=== PATIENT | male | born 1945 | race Caucasian/White ===

== ENCOUNTER 2023-06-26 19:49 | Inpatient (IN) | payer MEDICARE ==
[2023-06-26] MEDS ORDERED: Cefepime 2 GM VIAL ONE (20:37)
[2023-06-26] MEDS ORDERED: Sodium Chloride 0.9% 100 ML ONE (20:38)
[2023-06-26 20:52] LABS: Hematocrit 33.4 % (42.0-52.0); Hemoglobin 9.6 g/dL (14.0-18.0); Mean Corpuscular HGB CONC 28.7 g/dL (32.0-36.0); Mean Corpuscular Hemoglobin 30.2 pg (27.0-31.0); Mean Platelet Volume 8.9 fL (7.4-10.4); Platelet Count 208 10x3/uL (130-400); RBC Distribution Width 14.4 % (11.5-14.5); Red Blood Cell (RBC) Count 3.18 mill/uL (4.70-6.10); White Blood Cell (WBC) Count 11.1 10x3/uL (4.8-10.8)
[2023-06-26 20:57] LABS: Delete Auto Diff?? YES; Manual Diff?? YES
[2023-06-26] MEDS ORDERED: Vancomycin (BATCH) 1.5 GM in Premix 1 BAG IVPB SCH (21:00)
[2023-06-26 21:18] LABS: ALT (SGPT) 8 U/L (8-55); AST (SGOT) 15 U/L (5-34); Albumin 3.4 g/dL (3.4-4.8); Alkaline Phosphatase 89 U/L (40-110); Anion Gap 14 mmol/L (10-20); BUN (Urea Nitrogen) 28 mg/dL (8.4-25.7); Bilirubin, Total 0.7 mg/dL (0.2-1.2); Calc. Creatinine Clearance 0 mL/min (70-130); Carbon Dioxide 26 mmol/L (23-31); Chloride 100 mmol/L (98-107); Estimated GFR 61; Globulin 3.1 g/dL (2.4-3.5); Glucose 114 mg/dL (83-110); Potassium 4.4 mmol/L (3.5-5.1); Protein, Total 6.5 g/dL (5.8-8.1); Sodium 136 mmol/L (136-145)
[2023-06-26 21:39] LABS: Anisocytosis SLIGHT = 6-15 cells HPF (0-5); Band 5 % (5-11); CellaVision Operator ID LAB.JMM; Eosinophils 1 % (0-10); Lymphocytes 2 % (21-51); Macrocytosis SLIGHT = 6-15 cells HPF (0-5); Metamyelocyte 1 % (0-0); Monocytes 3 % (0-10); Neutrophil 86 % (42-75); Platelet Adequacy Comment Platelets Normal; Reactive Lymphocytes 1 % (0-10); Total Cell Count 100
[2023-06-26 21:40] LABS: Actual Bicarbonate (HCO3v) 28.5 mEq/L (22-28); Base Excess 2.1 mEq/L (-2.0 to +3.0); Calcium, Ionized (venous) 1.15 mmol/L (1.16-1.32); Chloride (VBG) 99 mmol/L (98-106); Hematocrit-VBG 32 % (42.0-52.0); Hemoglobin (Hb) 10.8 g/dL (12.6-17.4); Potassium (VBG) 4.39 mmol/L (3.70-5.30); Sodium 135 mmol/L (133-146); pH (venous) 7.345 (7.32-7.43)
[2023-06-26 21:51] LABS: Bacteria/HPF 3+ HPF (None Seen); Bilirubin Negative (Negative); Blood, Urine 3+ (Negative); CAUTI Indications for Culture Dysuria,urgency,freq; Clarity Extra Turbid (Clear); Glucose, Urine (Dipstick) Normal (Negative); Ketone, Urine Negative (Negative); Leukocyte 500 Leu/uL (Negative); Nitrite Negative (Negative); Protein, Urine (Dipstick) 200 mg/dL (Neg-Trace); Specific Gravity, Urine 1.012 (1.002-1.036); Squamous Epithelial None Seen HPF (0-3); Urobilinogen Normal mg/dL (Less than 2); WBC/HPF Greater than 50 HPF (0-3); pH, Urine 6.5 (5.0-9.0)
[2023-06-26 22:00] LABS: Urine Culture Reflex Yes Yes
[2023-06-26] MEDS ORDERED: Sodium Chloride 0.9% 1,000 ML IV SCH (23:45)
[2023-06-26] MEDS ORDERED: Ondansetron PF 4 MG/2 ML Vial IVP PRN (23:46)
[2023-06-26] MEDS ORDERED: Acetaminophen 325 MG TAB PO PRN (23:46)
[2023-06-26] MEDS ORDERED: Ondansetron ODT 4 MG TAB PO PRN (23:46)
[2023-06-26] MEDS ORDERED: Ipratropium/Albuterol 3 ML NEB NEB PRN (23:49)
[2023-06-27 03:52] VITALS: BMI 22.1
[2023-06-27 05:03] LABS: Hematocrit 31.6 % (42.0-52.0); Hemoglobin 8.9 g/dL (14.0-18.0); Mean Corpuscular HGB CONC 28.2 g/dL (32.0-36.0); Mean Corpuscular Volume 106.4 fl (78.0-98.0); Mean Platelet Volume 9.3 fL (7.4-10.4); Platelet Count 176 10x3/uL (130-400); RBC Distribution Width 14.6 % (11.5-14.5); Red Blood Cell (RBC) Count 2.97 mill/uL (4.70-6.10); White Blood Cell (WBC) Count 9.2 10x3/uL (4.8-10.8)
[2023-06-27 05:28] LABS: Delete Auto Diff?? YES; Manual Diff?? YES
[2023-06-27 05:31] LABS: Anion Gap 13 mmol/L (10-20); BUN (Urea Nitrogen) 26 mg/dL (8.4-25.7); Calc. Creatinine Clearance 54 mL/min (70-130); Carbon Dioxide 26 mmol/L (23-31); Chloride 105 mmol/L (98-107); Estimated GFR 74; Glucose 112 mg/dL (83-110); Sodium 140 mmol/L (136-145)
[2023-06-27 06:18] LABS: Anisocytosis SLIGHT = 6-15 cells HPF (0-5); Band 9 % (5-11); CellaVision Operator ID LAB.JMM; Lymphocytes 3 % (21-51); Macrocytosis SLIGHT = 6-15 cells HPF (0-5); Metamyelocyte 1 % (0-0); Monocytes 6 % (0-10); Neutrophil 80 % (42-75); Platelet Adequacy Comment Platelets Normal; Polychromasia SLIGHT = 2-3 cells HPF (0-2); Total Cell Count 100
[2023-06-27] MEDS: cefTRIAXone\\ROCEPHIN 1 GM in Sodium Chloride 0.9% 100 ML IVPB SCH (08:45)
[2023-06-27] MEDS ORDERED: FLU VACC QS2023(65UP)/MF59C/PF 60 MCG/0.5 ML SYRINGE IM ONE (09:00)
[2023-06-27] MEDS ORDERED: methylPREDNISolone Sod Succ 40 MG VIAL IVP SCH (11:00)
[2023-06-27] MEDS: Ipratropium/Albuterol 3 ML NEB NEB SCH ×2 (13:58→18:37)
[2023-06-28 05:29] LABS: Anion Gap 16 mmol/L (10-20); BUN (Urea Nitrogen) 28 mg/dL (8.4-25.7); Calc. Creatinine Clearance 49 mL/min (70-130); Calcium 8.4 mg/dL (7.8-10.44); Carbon Dioxide 22 mmol/L (23-31); Chloride 104 mmol/L (98-107); Estimated GFR 66; Glucose 133 mg/dL (83-110); Sodium 138 mmol/L (136-145)
[2023-06-28] MEDS: Ipratropium/Albuterol 3 ML NEB NEB SCH ×4 (07:07→20:35)
[2023-06-28 07:22] LABS: Hematocrit 33.4 % (42.0-52.0); Hemoglobin 9.4 g/dL (14.0-18.0); Mean Corpuscular HGB CONC 28.1 g/dL (32.0-36.0); Mean Corpuscular Hemoglobin 30.2 pg (27.0-31.0); Mean Corpuscular Volume 107.4 fl (78.0-98.0); Mean Platelet Volume 9.4 fL (7.4-10.4); Platelet Count 176 10x3/uL (130-400); RBC Distribution Width 14.8 % (11.5-14.5); Red Blood Cell (RBC) Count 3.11 mill/uL (4.70-6.10); White Blood Cell (WBC) Count 9.8 10x3/uL (4.8-10.8)
[2023-06-28 08:08] LABS: Delete Auto Diff?? YES; Manual Diff?? YES
[2023-06-28 08:10] LABS: #Monocytes 0.4 thou/uL (0.11-0.59); #Neutrophils 8.9 thou/uL (1.40-6.50); %Basophils 0.3 % (0.0-1.0); %Eosinophils 0.2 % (0.0-10.0); %Lymphocytes 2.7 % (21.0-51.0); %Monocytes 4.1 % (0.0-10.0); %Neutrophils 87.7 % (42.0-75.0)
[2023-06-28 08:58] LABS: Band 10 % (5-11); CellaVision Operator ID LAB.GE; Hypochromia SLIGHT = 6-15 cells HPF (0-5); Lymphocytes 2 % (21-51); Macrocytosis SLIGHT = 6-15 cells HPF (0-5); Metamyelocyte 1 % (0-0); Monocytes 2 % (0-10); Myelocyte 1 % (0-0); Neutrophil 83 % (42-75); Platelet Adequacy Comment Platelets Normal; Polychromasia SLIGHT = 2-3 cells HPF (0-2); Reactive Lymphocytes 1 % (0-10); Total Cell Count 101
[2023-06-28] MEDS: cefTRIAXone\\ROCEPHIN 1 GM in Sodium Chloride 0.9% 100 ML IVPB SCH (09:44)
[2023-06-28] MEDS: methylPREDNISolone Sod Succ 40 MG VIAL IVP SCH (09:49)
[2023-06-29] MEDS: Ipratropium/Albuterol 3 ML NEB NEB SCH ×3 (00:49→14:00)
[2023-06-29 04:21] LABS: Hematocrit 31.6 % (42.0-52.0); Hemoglobin 9.2 g/dL (14.0-18.0); Mean Corpuscular HGB CONC 29.1 g/dL (32.0-36.0); Mean Corpuscular Hemoglobin 30.9 pg (27.0-31.0); Platelet Count 182 10x3/uL (130-400); RBC Distribution Width 14.7 % (11.5-14.5); Red Blood Cell (RBC) Count 2.98 mill/uL (4.70-6.10); White Blood Cell (WBC) Count 14.6 10x3/uL (4.8-10.8)
[2023-06-29 05:18] LABS: Manual Diff?? YES
[2023-06-29 05:19] LABS: Delete Auto Diff?? YES
[2023-06-29 06:24] LABS: Anisocytosis SLIGHT = 6-15 cells HPF (0-5); CellaVision Operator ID LAB.JMM; Hypochromia MODERATE=16-30 cells HPF (0-5); Lymphocytes 2 % (21-51); Monocytes 3 % (0-10); Neutrophil 95 % (42-75); Platelet Adequacy Comment Platelets Normal; Polychromasia SLIGHT = 2-3 cells HPF (0-2); Total Cell Count 99
[2023-06-29 08:54] LABS: Anion Gap 14 mmol/L (10-20); BUN (Urea Nitrogen) 33 mg/dL (8.4-25.7); Calc. Creatinine Clearance 47 mL/min (70-130); Carbon Dioxide 24 mmol/L (23-31); Chloride 104 mmol/L (98-107); Estimated GFR 63; Glucose 126 mg/dL (83-110); Potassium 3.9 mmol/L (3.5-5.1); Sodium 138 mmol/L (136-145)
[2023-06-29] MEDS: methylPREDNISolone Sod Succ 40 MG VIAL IVP SCH (10:19)
[2023-06-29] MEDS: cefTRIAXone\\ROCEPHIN 1 GM in Sodium Chloride 0.9% 100 ML IVPB SCH (10:19)
[2023-06-29 11:24] VITALS: BP 118/68; TEMP 98.1
== END 2023-06-29 15:05 | disposition home or self-care (01) | DRG 690 ==
LOC: ERS 19:49 → 2NO 23:46 → OBSVTOIN 06-27 09:41
PROVIDERS: ADMIT Physician Assistant; ATTEND Internal Medicine
DX: N39.0 Urinary tract infection, site not specified (principal); Z94.84 Stem cells transplant status; J96.10 Chronic respiratory failure, unspecified whether with hypoxia or hypercapnia; J44.1 Chronic obstructive pulmonary disease with (acute) exacerbation; C91.50 Adult T-cell lymphoma/leukemia (HTLV-1-associated) not having achieved remission; E78.5 Hyperlipidemia, unspecified; N40.0 Benign prostatic hyperplasia without lower urinary tract symptoms; D64.9 Anemia, unspecified; W19.XXXA Unspecified fall, initial encounter; Z79.899 Other long term (current) drug therapy; Z98.890 Other specified postprocedural states; Z87.891 Personal history of nicotine dependence; Y92.009 Unspecified place in unspecified non-institutional (private) residence as the place of occurrence of the external cause
CPT/HCPCS: 36415; 51701; 70450; 70486; 71045; 72125; 80048; 80053; 81001; 82607; 82805; 83605; 85025; 87040; 87077; 87086; 87186; 90471; 90694; 93005; 94640; 96365; 96366; 96374; 96375; G0008; G0378; J0692; J0696; J2920; J3370; J3490; J7050; J7620

== ENCOUNTER 2023-07-02 08:21 | Emergency (ER) | payer MEDICARE, OTHER ==
[2023-07-02] MEDS ORDERED: Acetaminophen 325 MG TAB ONE (10:33)
== END 2023-07-02 12:46 | disposition home or self-care (01) ==
LOC: ERS 08:21
DX: M54.6 Pain in thoracic spine (principal); J44.9 Chronic obstructive pulmonary disease, unspecified; Z87.891 Personal history of nicotine dependence
CPT/HCPCS: 70450; 72070; 72125

== ENCOUNTER 2023-07-12 10:05 | Inpatient (IN) | payer OTHER, MEDICARE ==
[2023-07-12 10:24] LABS: Actual Bicarbonate (HCO3a) 31.8 mEq/L (22-28); Analyzer IN Cardio ER; Base Excess (BEa) 5.6 mEq/L (-2.0 to +3.0); CO2 Tension 56.3 mmHg (35.0-45.0); Carboxyhemoglobin (COHb) 0.5 gm% (0.0-3.0); Hematocrit-ABG 25 % (42.0-52.0); Hemoglobin (Hb) 8.6 g/dL (14.0-18.0); O2 Tension (PaO2), arterial 65.1 mmHg (> 60.0); Potassium - ABG Lab 4.15 mmol/L (3.70-5.30)
[2023-07-12 10:29] LABS: ALV-art Gradient 149.725 mmHg (0-20); Puncture Site RRA
[2023-07-12 10:35] LABS: Hematocrit 28.5 % (42.0-52.0); Hemoglobin 7.8 g/dL (14.0-18.0); Mean Corpuscular HGB CONC 27.4 g/dL (32.0-36.0); Mean Corpuscular Hemoglobin 30.6 pg (27.0-31.0); Mean Corpuscular Volume 111.8 fl (78.0-98.0); Platelet Count 193 10x3/uL (130-400); RBC Distribution Width 15.7 % (11.5-14.5); Red Blood Cell (RBC) Count 2.55 mill/uL (4.70-6.10); White Blood Cell (WBC) Count 8.3 10x3/uL (4.8-10.8)
[2023-07-12 10:42] LABS: Delete Auto Diff?? YES; Manual Diff?? YES
[2023-07-12 11:00] LABS: ALT (SGPT) 9 U/L (8-55); AST (SGOT) 10 U/L (5-34); Albumin 2.7 g/dL (3.4-4.8); Alkaline Phosphatase 83 U/L (40-110); Anion Gap 10 mmol/L (10-20); BUN (Urea Nitrogen) 35 mg/dL (8.4-25.7); Bilirubin, Total 0.4 mg/dL (0.2-1.2); Calc. Creatinine Clearance 0 mL/min (70-130); Calcium 8.4 mg/dL (7.8-10.44); Carbon Dioxide 31 mmol/L (23-31); Chloride 105 mmol/L (98-107); Estimated GFR 88; Globulin 3.1 g/dL (2.4-3.5); Glucose 106 mg/dL (83-110); Potassium 4.3 mmol/L (3.5-5.1); Protein, Total 5.8 g/dL (5.8-8.1); Sodium 142 mmol/L (136-145)
[2023-07-12] MEDS ORDERED: Cefepime 2 GM VIAL ONE (11:07)
[2023-07-12] MEDS ORDERED: Sodium Chloride 0.9% 100 ML ONE (11:07)
[2023-07-12 11:18] LABS: Band 4 % (5-11); CellaVision Operator ID LAB.GE; Lymphocytes 3 % (21-51); Macrocytosis SLIGHT = 6-15 cells HPF (0-5); Metamyelocyte 1 % (0-0); Monocytes 1 % (0-10); Myelocyte 2 % (0-0); Neutrophil 88 % (42-75); Platelet Adequacy Comment Platelets Normal; Polychromasia MODERATE = 3-4 cells HPF (0-2); Stomatocytes SLIGHT = 2-5 cells HPF (0-1); Total Cell Count 101; Vacuoles SLIGHT
[2023-07-12 11:20] LABS: Bacteria/HPF 1+ HPF (None Seen); Bilirubin Negative (Negative); Blood, Urine 3+ (Negative); CAUTI Indications for Culture Urological Procedure; Clarity Turbid (Clear); Glucose, Urine (Dipstick) Normal (Negative); Ketone, Urine Trace mg/dL (Negative); Leukocyte 500 Leu/uL (Negative); Nitrite Negative (Negative); Protein, Urine (Dipstick) 70 mg/dL (Neg-Trace); RBC/HPF Greater than 50 HPF (0-3); Specific Gravity, Urine 1.016 (1.002-1.036); Squamous Epithelial None Seen HPF (0-3); Urine Culture Reflex Yes Yes; Urobilinogen Normal mg/dL (Less than 2); WBC/HPF Greater than 50 HPF (0-3); pH, Urine 6.5 (5.0-9.0)
[2023-07-12 11:24] LABS: Troponin I Less than 0.010 ng/mL (< 0.028)
[2023-07-12 11:34] LABS: INR-International Normal Ratio 1.2; PTT 50.4 sec (22.9-36.1); Prothrombin Time 15.4 sec (12.0-14.7)
[2023-07-12 11:50] LABS: SARS-CoV-2 NAA Rapid Test Not Detected (NotDetected)
[2023-07-12] MEDS ORDERED: Vancomycin (BATCH) 1.5 GM in Premix 1 BAG IVPB SCH (12:30)
[2023-07-12 13:57] LABS: Troponin I Less than 0.010 ng/mL (< 0.028)
[2023-07-12] MEDS ORDERED: HYDROcodone/Acetaminophen 5/325 mg Tablet PO PRN ×2 (14:48)
[2023-07-12] MEDS ORDERED: Acetaminophen 325 MG TAB PO PRN (14:48)
[2023-07-12] MEDS ORDERED: Ondansetron PF 4 MG/2 ML Vial IVP PRN (14:48)
[2023-07-12] MEDS ORDERED: Ipratropium/Albuterol 3 ML NEB NEB PRN (14:48)
[2023-07-12] MEDS ORDERED: Furosemide 40 MG/4 ML VIAL SLOW IVP SCH (15:00)
[2023-07-12 15:07] VITALS: BMI 22.9
[2023-07-12 17:27] LABS: Troponin I Less than 0.010 ng/mL (< 0.028)
[2023-07-12] MEDS ORDERED: Polyethylene Glycol 3350 17 GM Packet PO PRN (18:32)
[2023-07-12] MEDS ORDERED: Senokot S 8.6-50 MG TAB PO PRN (18:41)
[2023-07-12] MEDS ORDERED: Terazosin HCl 1 MG CAP PO SCH (21:00)
[2023-07-12] MEDS ORDERED: cefTRIAXone\\ROCEPHIN 1 GM in Sodium Chloride 0.9% 100 ML IVPB SCH (21:00)
[2023-07-12] MEDS: Gabapentin 100 MG CAP PO SCH (21:46)
[2023-07-13] MEDS: Non-Formulary Item 1 EACH (Ipratropium/Albuterol Sulfate [Combivent Respimat] 120 PUFF In INH SCH ×3 (04:23→15:58)
[2023-07-13 05:00] LABS: Hematocrit 32.7 % (42.0-52.0); Hemoglobin 8.8 g/dL (14.0-18.0); Mean Corpuscular HGB CONC 26.9 g/dL (32.0-36.0); Mean Corpuscular Hemoglobin 30.6 pg (27.0-31.0); Mean Corpuscular Volume 113.5 fl (78.0-98.0); Mean Platelet Volume 9.3 fL (7.4-10.4); Platelet Count 193 10x3/uL (130-400); RBC Distribution Width 15.8 % (11.5-14.5); Red Blood Cell (RBC) Count 2.88 mill/uL (4.70-6.10); White Blood Cell (WBC) Count 21.3 10x3/uL (4.8-10.8)
[2023-07-13 05:03] LABS: Delete Auto Diff?? YES; Manual Diff?? YES
[2023-07-13] MEDS: Furosemide 40 MG/4 ML VIAL SLOW IVP SCH ×2 (05:06→15:57)
[2023-07-13 05:43] LABS: Anion Gap 18 mmol/L (10-20); BUN (Urea Nitrogen) 40 mg/dL (8.4-25.7); Calc. Creatinine Clearance 49 mL/min (70-130); Calcium 8.6 mg/dL (7.8-10.44); Carbon Dioxide 26 mmol/L (23-31); Chloride 104 mmol/L (98-107); Estimated GFR 64; Glucose 83 mg/dL (83-110); Potassium 4.6 mmol/L (3.5-5.1); Sodium 143 mmol/L (136-145)
[2023-07-13 05:44] LABS: Band 1 % (5-11); CellaVision Operator ID lab.abc; Macrocytosis SLIGHT = 6-15 cells HPF (0-5); Neutrophil 98 % (42-75); Platelet Adequacy Comment Platelets Normal; Smudge Cells 10.1 %; Total Cell Count 99
[2023-07-13 08:04] VITALS: TEMP 97.8
[2023-07-13] MEDS: Gabapentin 100 MG CAP PO SCH ×2 (08:49→15:57)
[2023-07-13] MEDS ORDERED: valACYclovir 500 MG TAB PO SCH (09:00)
[2023-07-13] MEDS ORDERED: Vit A,C & E/Lutein/Minerals Tablet PO SCH (09:00)
[2023-07-13] MEDS ORDERED: Meropenem 1 GM in Sodium Chloride 0.9% 100 ML IVPB SCH (10:00)
[2023-07-13] MEDS: methylPREDNISolone Sod Succ 40 MG VIAL IVP SCH ×2 (11:48→18:28)
[2023-07-13] MEDS ORDERED: Vancomycin 1 GM in Premix 1 BAG IVPB SCH (12:00)
[2023-07-13] MEDS ORDERED: Meropenem 2 GM in Sodium Chloride 0.9% 100 ML IVPB SCH (14:00)
[2023-07-15] MEDS ORDERED: FLU VACC QS2023(65UP)/MF59C/PF 60 MCG/0.5 ML SYRINGE IM ONE (09:00)
== END 2023-07-13 19:00 | disposition hospice, inpatient (51) | DRG 193 ==
LOC: ERS 10:05 → IMCU/EMU 12:50
PROVIDERS: ADMIT Internal Medicine; ATTEND Internal Medicine
PROC: 4A033R1 Measurement of Arterial Saturation, Peripheral, Percutaneous Approach (ICD-10-PCS; 2023-07-12)
PROC: 5A09357 Assistance with Respiratory Ventilation, Less than 24 Consecutive Hours, Continuous Positive Airway Pressure (ICD-10-PCS; principal; 2023-07-13)
DX: J18.9 Pneumonia, unspecified organism (principal); J96.21 Acute and chronic respiratory failure with hypoxia; Z94.84 Stem cells transplant status; N39.0 Urinary tract infection, site not specified; J44.0 Chronic obstructive pulmonary disease with (acute) lower respiratory infection; J44.1 Chronic obstructive pulmonary disease with (acute) exacerbation; E78.5 Hyperlipidemia, unspecified; N40.0 Benign prostatic hyperplasia without lower urinary tract symptoms; Z66 Do not resuscitate; I50.9 Heart failure, unspecified; E88.09 Other disorders of plasma-protein metabolism, not elsewhere classified; Z11.52 Encounter for screening for COVID-19; Z79.51 Long term (current) use of inhaled steroids; Z79.899 Other long term (current) drug therapy; Z98.890 Other specified postprocedural states; Z87.891 Personal history of nicotine dependence
CPT/HCPCS: 36415; 36416; 36600; 71045; 80048; 80053; 81001; 82805; 83605; 83880; 84484; 85025; 85610; 85730; 87040; 87086; 93005; 93306; 94640; 94660; 94760; J0692; J0696; J1650; J1940; J2185; J2920; J3370; J3370-JW; J3490; J7620

== ENCOUNTER 2023-07-13 19:11 | Inpatient (IN) | payer OTHER ==
[2023-07-13 19:22] VITALS: BMI 22.9
[2023-07-13] MEDS ORDERED: Haloperidol Lactate 5 MG/ML VIAL SLOW IVP PRN (19:45)
[2023-07-13] MEDS ORDERED: Acetaminophen 650 MG Suppository PR PRN (19:45)
[2023-07-13] MEDS ORDERED: Scopolamine 1 mg/72 hour Patch TOP PRN (19:45)
[2023-07-13] MEDS ORDERED: Ondansetron PF 4 MG/2 ML Vial IVP PRN (19:45)
[2023-07-13] MEDS ORDERED: Ipratropium/Albuterol 3 ML NEB NEB PRN (19:47)
[2023-07-13] MEDS ORDERED: GLYCOPYRROLATE/PF 0.2 MG/ML VIAL SLOW IVP PRN (19:48)
[2023-07-13] MEDS ORDERED: Bisacodyl 10 MG SUPP PR PRN (19:49)
[2023-07-13] MEDS: Morphine 4 MG/ML VIAL SLOW IVP PRN (20:57)
[2023-07-13] MEDS: Lorazepam 2 MG/ML VIAL SLOW IVP PRN (20:58)
[2023-07-14] MEDS: Lorazepam 2 MG/ML VIAL SLOW IVP PRN ×3 (07:36→17:45)
[2023-07-14] MEDS: Furosemide 40 MG/4 ML VIAL SLOW IVP SCH (07:36)
[2023-07-14] MEDS: Morphine 4 MG/ML VIAL SLOW IVP PRN ×2 (11:36→17:44)
[2023-07-15] MEDS: Morphine 4 MG/ML VIAL SLOW IVP PRN ×4 (01:20→17:45)
[2023-07-15] MEDS: Lorazepam 2 MG/ML VIAL SLOW IVP PRN ×4 (01:39→22:58)
[2023-07-15] MEDS: Furosemide 40 MG/4 ML VIAL SLOW IVP SCH (07:40)
[2023-07-16] MEDS: Lorazepam 2 MG/ML VIAL SLOW IVP PRN (05:22)
[2023-07-16] MEDS: Morphine 4 MG/ML VIAL SLOW IVP PRN ×3 (05:29→15:59)
[2023-07-16] MEDS ORDERED: Lorazepam 2 MG/ML VIAL SLOW IVP SCH (10:00)
[2023-07-17] MEDS: Morphine 4 MG/ML VIAL SLOW IVP PRN (10:15)
[2023-07-18] MEDS: Morphine 4 MG/ML VIAL SLOW IVP PRN (05:25)
[2023-07-18 21:08] VITALS: BP 88/56; TEMP 97.1
== END 2023-07-19 03:52 | disposition expired | DRG 951 ==
LOC: IMCU/EMU 19:11 → T4-A 07-15 12:59
PROVIDERS: ADMIT Family Medicine; ATTEND Family Medicine
PROC: 5A09457 Assistance with Respiratory Ventilation, 24-96 Consecutive Hours, Continuous Positive Airway Pressure (ICD-10-PCS; principal; 2023-07-14)
DX: Z51.5 Encounter for palliative care (principal); J18.9 Pneumonia, unspecified organism; J96.00 Acute respiratory failure, unspecified whether with hypoxia or hypercapnia; N39.0 Urinary tract infection, site not specified; I50.9 Heart failure, unspecified; J44.9 Chronic obstructive pulmonary disease, unspecified; D64.9 Anemia, unspecified
CPT/HCPCS: J1940; J2060; J2270